=== PATIENT | female | born 1995 | race Caucasian/White ===

== ENCOUNTER 2025-10-17 17:36 | Emergency (ER) | payer SELFPAY ==
[~2025-10-17] VITALS: Ht 165.1 cm; Wt 74.0 kg
[2025-10-17 17:48] VITALS: BP 125/72; TEMP 37; O2SAT 100
[2025-10-17 18:07] VITALS: PULSE 86; RESP 18; O2SAT 99
== END 2025-10-17 21:21 | disposition left against medical advice (07) ==
LOC: ER 17:41
DX: L02.415 Cutaneous abscess of right lower limb (principal)
CPT/HCPCS: 99281